=== PATIENT | female | born 1950 | race Caucasian/White ===

== ENCOUNTER → 2021-11-19 11:57 | Outpatient (CLI) | payer MEDICARE, SELFPAY ==
[2021-11-19 19:19] LABS: Add Manual Diff / Slide Review NO; Basophils Absolute Auto 0 /uL (0-100); Basophils Percent Auto 0.7 % (0-2); Eosinophils Absolute Auto 200 /uL (0-450); Eosinophils Percent Auto 3.2 % (2-4); Hematocrit 42.1 % (36-46); Hemoglobin 14.3 g/dL (12.0-16.0); Lymphocytes Absolute Auto 1500 /uL (1100-4500); Lymphocytes Percent Auto 29.5 % (25-40); Mean Corpuscular Hemoglobin 32.6 PG (26-34); Mean Corpuscular Volume 96.1 fL (80-100); Monocytes Absolute Auto 400 /uL (0-900); Monocytes Percent Auto 7.9 % (3-14); Neutrophils Absolute Auto 2900 /uL (1500-7000); Neutrophils Percent Auto 58.7 % (50-75); Platelet Count 241 X10^3/uL (150-400); Red Blood Cell Count 4.38 X10^6/uL (4.0-5.2); Red Cell Distribution Width 13.1 % (11.6-14.8)
[2021-11-19 19:24] LABS: Alanine Aminotransferase 11 IU/L (<35); Albumin 4.5 g/dL (3.5-5.0); Albumin Globulin Ratio 1.7 (1.0-2.8); Alkaline Phosphatase 67 U/L (38-126); Aspartate Aminotransferase 24 IU/L (14-36); BUN Creatinine Ratio 21.3 (6-22); Blood Urea Nitrogen 13 mg/dL (7-17); Calcium 9.7 mg/dL (8.4-10.2); Carbon Dioxide 30 mmol/L (22-32); Chloride 105 mmol/L (98-107); Cholesterol 275 mg/dL (140-199); Estimated Glomerular Filt Rate > 60.0 mL/min (>60); Globulin 2.6 g/dL (1.7-4.1); Glucose 100 mg/dL (80-110); HDL Cholesterol 106 mg/dL (40-60); HEMOLYSIS < 15 (0-50); LDL Cholesterol Calculated 146 mg/dL (<100); Sodium 139 mmol/L (137-145); Total Protein 7.1 g/dL (6.3-8.2); Triglycerides 116 mg/dL (35-150)
[2021-11-19 19:30] LABS: Hemoglobin A1C% w Est Avg Glu 5.2 % (4.0-6.0)
[2021-11-19 19:43] LABS: Vitamin D 25 Hydroxy (D3) 31.8 ng/mL (30.0-100.0)
[2021-11-19 19:57] LABS: TSH w/ Reflex to FT4 2.49 uIU/mL (0.47-4.68)
[2021-11-19 20:16] LABS: Vitamin B12 208 pg/mL (239-931)
== END ==
PROVIDERS: PCP Physician Assistant; Referring Provider Physician Assistant; Visit Provider Physician Assistant
DX: R20.0 Anesthesia of skin (principal); Z13.220 Encounter for screening for lipoid disorders; F41.9 Anxiety disorder, unspecified; G47.30 Sleep apnea, unspecified; R07.9 Chest pain, unspecified; K58.9 Irritable bowel syndrome, unspecified; Z87.19 Personal history of other diseases of the digestive system; Z85.828 Personal history of other malignant neoplasm of skin; L98.9 Disorder of the skin and subcutaneous tissue, unspecified; F32.A Depression, unspecified
CPT/HCPCS: 80053; 80061; 82306; 82607; 83036; 84443; 85025

== ENCOUNTER → 2022-01-01 13:06 | Outpatient (CLI) | payer MEDICARE, SELFPAY ==
[2022-01-01 19:27] LABS: Cholesterol 245 mg/dL (140-199); HDL Cholesterol 80 mg/dL (40-60); LDL Cholesterol Calculated 148 mg/dL (<100); Triglycerides 84 mg/dL (35-150)
== END ==
PROVIDERS: PCP Physician Assistant; Visit Provider Physician Assistant
DX: E78.5 Hyperlipidemia, unspecified (principal); Z98.82 Breast implant status
CPT/HCPCS: 80061

== ENCOUNTER → 2022-01-13 08:15 | Outpatient (CLI) | payer MEDICARE, SELFPAY ==
[2022-01-13 19:33] LABS: COVID19 - ORCAS (NP or Nasal) Negative (Negative)
== END ==
PROVIDERS: PCP Physician Assistant; Visit Provider Physician Assistant
DX: Z01.812 Encounter for preprocedural laboratory examination (principal); Z20.822 Contact with and (suspected) exposure to COVID-19
CPT/HCPCS: C9803; U0003

== ENCOUNTER → 2022-11-13 12:17 | Outpatient (CLI) | payer MEDICARE, SELFPAY | PROVIDERS: PCP Physician Assistant; Referring Provider Physician Assistant; Visit Provider Physician Assistant | DX: M81.0 Age-related osteoporosis without current pathological fracture (principal); Z13.820 Encounter for screening for osteoporosis; Z78.0 Asymptomatic menopausal state; Z87.311 Personal history of (healed) other pathological fracture | CPT/HCPCS: 77080 ==

== ENCOUNTER → 2022-11-17 10:46 | Outpatient (CLI) | payer MEDICARE, SELFPAY ==
[2022-11-17 20:23] LABS: Add Manual Diff / Slide Review NO; Basophils Absolute Auto 100 /uL (0-100); Eosinophils Absolute Auto 200 /uL (0-450); Eosinophils Percent Auto 4.3 % (2-4); Hemoglobin 13.5 g/dL (12.0-16.0); Lymphocytes Absolute Auto 2000 /uL (1100-4500); Lymphocytes Percent Auto 36.2 % (25-40); Mean Corpuscular HGB Conc 33.7 % (30-36); Mean Corpuscular Hemoglobin 31.9 PG (26-34); Mean Corpuscular Volume 94.7 fL (80-100); Monocytes Absolute Auto 500 /uL (0-900); Monocytes Percent Auto 9.4 % (3-14); Neutrophils Absolute Auto 2700 /uL (1500-7000); Neutrophils Percent Auto 49.1 % (50-75); Platelet Count 214 X10^3/uL (150-400); Red Blood Cell Count 4.22 X10^6/uL (4.0-5.2); White Blood Cell Count 5.5 X10^3/uL (4.5-11.0)
[2022-11-17 20:33] LABS: Alanine Aminotransferase 19 IU/L (<35); Albumin 3.9 g/dL (3.5-5.0); Albumin Globulin Ratio 1.3 (1.0-2.8); Alkaline Phosphatase 104 U/L (38-126); Aspartate Aminotransferase 24 IU/L (14-36); BUN Creatinine Ratio 28.8 (6-22); Blood Urea Nitrogen 17 mg/dL (7-17); Carbon Dioxide 28 mmol/L (22-32); Chloride 104 mmol/L (98-107); Cholesterol 244 mg/dL (140-199); Estimated Glomerular Filt Rate > 60 mL/min (>60); Glucose 98 mg/dL (80-110); HDL Cholesterol 62 mg/dL (40-60); HEMOLYSIS < 15 (0-50); LDL Cholesterol Calculated 166 mg/dL (<100); Potassium 4.2 mmol/L (3.4-5.1); Sodium 141 mmol/L (137-145); Total Protein 6.9 g/dL (6.3-8.2); Triglycerides 78 mg/dL (35-150)
[2022-11-17 21:01] LABS: TSH w/ Reflex to FT4 1.61 uIU/mL (0.47-4.68)
== END ==
PROVIDERS: PCP Physician Assistant; Visit Provider Physician Assistant
DX: R00.0 Tachycardia, unspecified (principal); R52 Pain, unspecified
CPT/HCPCS: 80053; 80061; 84443; 85025

== ENCOUNTER → 2022-12-14 10:49 | Outpatient (CLI) | payer MEDICARE, SELFPAY ==
[2022-12-14 12:33] LABS: Influenza A - CEPHEID Flu A NEGATIVE (NEGATIVE); Influenza B - CEPHEID Flu B NEGATIVE (NEGATIVE); Respiratory Syncytial Virus Negative (Negative)
[2022-12-14 13:06] LABS: COVID-19 CEPHEID 4-PLEX PCR Negative (Negative)
== END ==
PROVIDERS: PCP Physician Assistant; Visit Provider Nurse Practitioner Family
DX: J02.9 Acute pharyngitis, unspecified (principal); R53.83 Other fatigue
CPT/HCPCS: 0241U; 87070

== ENCOUNTER 2022-12-14 11:14 | Emergency (ER) | payer MEDICARE, SELFPAY ==
[2022-12-14 11:22] VITALS: BP 184/78; PULSE 80; RESP 14; TEMP 37; O2SAT 100; BMI 22.1
--- NOTE | 2022-12-14 12:18 | DI.RAD.S_ITS ---
PROCEDURE: XR CHEST 1V INDICATIONS: chest pain TECHNIQUE: One view of the chest was acquired. COMPARISON: [facility] ([facility]), CR, XR CHEST 2V, 10/24/2022, 15:20. FINDINGS: Surgical changes and devices: Mammoplasty implants are incidentally noted. Lungs and pleura: On this semiupright portable chest examination, no large pneumothorax or large pleural effusions are seen. No focal infiltrates are seen. Mediastinum: Mediastinal contours appear normal. Heart size is normal. Atherosclerotic calcification of the aortic arch is noted. Bones and chest wall: No suspicious bony lesions. Age-appropriate bony degenerative changes are seen. Overlying soft tissues appear unremarkable. IMPRESSION: Portable chest study within normal limits for age. Postoperative and degenerative changes are seen. Dictated by: Miguel Angel Dorantes M.D. on 12/14/2022 at 11:39 Approved by: Miguel Angel Dorantes M.D. on 12/14/2022 at 11:40
[2022-12-14 12:49] LABS: Add Manual Diff / Slide Review NO; Basophils Absolute Auto 0 /uL (0-100); Basophils Percent Auto 0.7 % (0-2); Eosinophils Absolute Auto 100 /uL (0-450); Eosinophils Percent Auto 2.4 % (2-4); Hematocrit 41.2 % (36-46); Hemoglobin 13.8 g/dL (12.0-16.0); Lymphocytes Absolute Auto 1500 /uL (1100-4500); Lymphocytes Percent Auto 29.5 % (25-40); Mean Corpuscular HGB Conc 33.5 % (30-36); Mean Corpuscular Hemoglobin 31.9 PG (26-34); Mean Corpuscular Volume 95.4 fL (80-100); Monocytes Absolute Auto 600 /uL (0-900); Neutrophils Absolute Auto 2900 /uL (1500-7000); Neutrophils Percent Auto 56.4 % (50-75); Platelet Count 231 X10^3/uL (150-400); Red Blood Cell Count 4.32 X10^6/uL (4.0-5.2); Red Cell Distribution Width 13.7 % (11.6-14.8); White Blood Cell Count 5.1 X10^3/uL (4.5-11.0)
[2022-12-14 13:03] LABS: Alanine Aminotransferase 21 IU/L (<35); Albumin 4.2 g/dL (3.5-5.0); Albumin Globulin Ratio 1.4 (1.0-2.8); Alkaline Phosphatase 111 U/L (38-126); Aspartate Aminotransferase 26 IU/L (14-36); BUN Creatinine Ratio 32.7 (6-22); Bilirubin Total 0.8 mg/dL (0.2-1.3); Blood Urea Nitrogen 16 mg/dL (7-17); Calcium 9.2 mg/dL (8.4-10.2); Carbon Dioxide 29 mmol/L (22-32); Chloride 106 mmol/L (98-107); Creatine Kinase 45 U/L (30-135); Estimated Glomerular Filt Rate > 60 mL/min (>60); Glucose 102 mg/dL (80-110); HEMOLYSIS < 15 (0-50); Lipase 93 U/L (23-300); Magnesium 1.9 mg/dL (1.6-2.3); Potassium 3.9 mmol/L (3.4-5.1); Sodium 141 mmol/L (137-145); Total Protein 7.2 g/dL (6.3-8.2)
[2022-12-14 13:07] LABS: PTT Partial Thromboplastin Tim 30 SECONDS (26-36)
[2022-12-14 13:14] LABS: Troponin I < 0.012 ng/mL (0.01-0.034)
[2022-12-14 13:21] VITALS: BP 183/84; PULSE 80; O2SAT 100
[2022-12-14 13:30] VITALS: PULSE 72; O2SAT 99
[2022-12-14 14:00] VITALS: PULSE 79; RESP 22; O2SAT 98
[2022-12-14 14:30] VITALS: PULSE 78; RESP 19; O2SAT 99
--- NOTE | 2022-12-14 14:44 | ED_ITS ---
HPI - URI/Sore Throat General Chief Complaint: Upper Respiratory Symptoms Stated Complaint: pain in lt shldr into neck, fluid accum, sore thro Time Seen by Provider: 12/14/22 11:31 Source: patient Mode of arrival: Ambulatory History of Present Illness HPI Narrative: Patient 72-year-old female with history of depression anxiety ongoing left shoulder bursitis presents today with some left-sided fluid in neck. She has had chronic ongoing left shoulder pain or couple of months' worth worse with movement. This morning woke up with pain across her shoulder blades in the back and possibly like throat pain. No chest pain no shortness of breath. She was seen at the walk-in clinic and instructed to come here for further evaluation. She had a negative viral panel. She is not had any fever chills cough. She is no abdominal pain nausea or vomiting. No numbness tingling or weakness. She denies any hoarseness in her voice she is able to swallow no stridor is appreciated. Related Data Home Medications Medication Instructions Recorded Confirmed clonazepam 1 mg tablet 1 mg PO DAILY 11/19/21 10/24/22 trazodone 150 mg tablet 150 mg PO DAILY 11/19/21 10/24/22 triamcinolone acetonide 0.147 1 spray topical DAILY 11/19/21 10/24/22 mg/gram topical aerosol Previous Rx's Medication Instructions Recorded acyclovir 400 mg tablet 400 mg PO DAILY #90 tabs 11/21/21 duloxetine 60 mg capsule,delayed 60 mg PO BID #180 caps 11/21/21 release nitroglycerin 0.4 mg sublingual 0.4 mg sublingual Q5-15M PRN chest 11/21/21 tablet pain #30 tabs triamcinolone acetonide 0.1 % 1 applic topical BID #30 grams 11/21/21 topical ointment dicyclomine 20 mg tablet 20 mg PO QID PRN abdominal pain 02/07/22 #60 tabs metoprolol succinate 50 mg 50 mg PO DAILY #90 tabs 08/04/22 tablet,extended release 24 hr Allergies Allergy/AdvReac Type Severity Reaction Status Date / Time latex Allergy Intermediate Rash Verified 12/14/22 11:27 Penicillins Allergy Intermediate Vomiting Verified 12/14/22 11:27 Review of Systems Review of Systems ROS Unobtainable: All systems reviewed & are unremarkable except as noted in HPI and below Patient History Medical History Benign familial tremor Chicken pox (~1957) COVID-19 (~2019) Fractures Hearing loss Hemorrhoid Kidney stone Measles (~1953) Neck pain (~2020) Painful menstrual periods Plantar warts Restless leg syndrome Shoulder pain Vertigo Vision disorder Surgical History Anesthesia History of breast surgery (~1993) History of knee replacement (~2016) History of lithotripsy (~2020) Family History Mother Cancer Sister Mental health problem Sister Cancer Social History marital status: household members: spouse lives independently: No housing: house pets and animals: Yes Smoking Status: Never smoker well-balanced diet: daily or most days Type(s) of exercise: none Smoking Status: Never smoker alcohol intake frequency: other Substance Use Type: does not use Exam Initial Vital Signs Initial Vital Signs: Vital Signs Temperature 98.6 F 12/14/22 11:22 Pulse Rate 80 12/14/22 11:22 Respiratory Rate 14 12/14/22 11:22 Blood Pressure 184/78 H 12/14/22 11:22 Pulse Oximetry 100 12/14/22 11:22 Oxygen Delivery Method 12/14/22 11:22 GENERAL: Well-appearing, well-nourished and in no acute distress. HEENT: Head atraumatic,EOMI, pupils reactive, face symmetric, moist mucous m embranes NECK: Possibly some supraclavicular fluid but no fluctuation no erythema no cervical lymphadenopathy no trachea deviation managing own secretions CARDIOVASCULAR: Regular rate and rhythm without murmurs, rubs or gallops. RESPIRATORY: Breath sounds equal bilaterally, no wheezes rales or rhonchi. ABDOMEN: Soft, nontender. Normoactive bowel sounds all 4 quadrants. No guarding or rebound. EXTREMITIES: Normal range of motion, no clubbing or edema. Neurovascularly intact NEUROLOGICAL: Alert and oriented x4. SKIN: Warm, dry, no laceration, no petechiae, no rashes or lesions. Scores HEART Score Heart Score history: Slightly Suspicious Heart Score EKG: Normal Heart Score Age: > or = 65 years old Heart Score risk factors: No known risk factors Heart Score troponin: < or = to normal limit Heart Score Total: 2 Course Orders Ordered: ED Orders 12/14/22 11:39 EKG-12 Lead Stat 12/14/22 12:18 XR chest 1V Stat 12/14/22 12:35 Complete Blood Count AUTO DIFF Stat Comprehensive Metabolic Panel Stat Lipase Stat Magnesium Stat Partial Thromboplastin Time Stat Prothrombin Time INR Stat Troponin & CK Cardiac Panel Stat Vital Signs Vital signs: Vital Signs - 8 hr 12/14/22 13:21 12/14/22 13:21 12/14/22 13:30 Pulse Rate 80 72 Respiratory Rate Blood Pressure 183/84 H Pulse Oximetry 100 99 12/14/22 14:00 12/14/22 14:30 Pulse Rate 79 78 Respiratory Rate 22 19 Blood Pressure Pulse Oximetry 98 99 MDM - URI/Sore Throat Lab Data 12/14/22 12:35 12/14/22 12:35 Labs: Lab Results 12/14/22 12/14/22 12/14/22 Range/Units 12:35 12:35 12:35 WBC 5.1 (4.5-11.0) X10^3/uL RBC 4.32 (4.0-5.2) X10^6/uL Hgb 13.8 (12.0-16.0) g/dL Hct 41.2 (36-46) % MCV 95.4 (80-100) fL MCH 31.9 (26-34) PG MCHC 33.5 (30-36) % RDW 13.7 (11.6-14.8) % Plt Count 231 (150-400) X10^3/uL Neut % (Auto) 56.4 (50-75) % Lymph % (Auto) 29.5 (25-40) % Spink % (Auto) 11.0 (3-14) % Eos % (Auto) 2.4 (2-4) % Baso % (Auto) 0.7 (0-2) % Neut # (Auto) 2900 (7571-0022) /uL Lymph # (Auto) 1500 (2506-1180) /uL Spink # (Auto) 600 (0-900) /uL Eos # (Auto) 100 (0-450) /uL Baso # (Auto) 0 (0-100) /uL PT 11.0 (10.1-12.7) SECONDS INR 1.0 (0.9-1.3) APTT 30 (26-36) SECONDS Sodium 141 (137-145) mmol/L Potassium 3.9 (3.4-5.1) mmol/L Chloride 106 (98-107) mmol/L Carbon Dioxide 29 (22-32) mmol/L BUN 16 (7-17) mg/dL Creatinine 0.49 L (0.52-1.04) mg/dL Estimated GFR > 60 (>60) mL/min BUN/Creatinine Ratio 32.7 H (6-22) Glucose 102 (80-110) mg/dL Calcium 9.2 (8.4-10.2) mg/dL Magnesium 1.9 (1.6-2.3) mg/dL Total Bilirubin 0.8 (0.2-1.3) mg/dL AST 26 (14-36) IU/L ALT 21 (<35) IU/L Alkaline Phosphatase 111 (38-126) U/L Total Creatine Kinase 45 (30-135) U/L CK-MB (CK-2) TNP CK-MB (CK-2) Rel Index TNP Troponin I < 0.012 (0.01-0.034) ng/mL Total Protein 7.2 (6.3-8.2) g/dL Albumin 4.2 (3.5-5.0) g/dL Globulin 3.0 (1.7-4.1) g/dL Albumin/Globulin Ratio 1.4 (1.0-2.8) Lipase 93 (23-300) U/L Imaging Data Chest x-ray: Radiologist's Impression: [address] [address] XRay Report Signed Patient: Irene Walls MR#: [id number] : 1950 Acct:[id number] Age/Sex: 72 / F Date of Service: 12/14/22 Loc: ED Accession Number: [id number] ?? Procedure: XR chest 1V Ordering Provider: Tiana Wallis D.O. PROCEDURE:? XR CHEST 1V ? INDICATIONS:? chest pain ? TECHNIQUE:? One view of the chest was acquired.? ? COMPARISON:? [facility] ([facility]), CR, XR CHEST 2V, 10/24/2022, 15:20. ? FINDINGS:? ? Surgical changes and devices:? Mammoplasty implants are incidentally noted.? ? Lungs and pleura:? On this semiupright portable chest examination, no large pneumothorax or large pleural effusions are seen.? No focal infiltrates are seen.? ? Mediastinum:? Mediastinal contours appear normal.? Heart size is normal.? Atherosclerotic calcification of the aortic arch is noted.? ? Bones and chest wall:? No suspicious bony lesions.? Age-appropriate bony degenerative changes are seen.? Overlying soft tissues appear unremarkable.? ? ? IMPRESSION:? Portable chest study within normal limits for age. ? Postoperative and degenerative changes are seen.? ? ? Dictated by: Miguel Angel Dorantes M.D. on 12/14/2022 at 11:39 ? ? ECG Data Interpretation: Sinus rhythm rate 77 CO interval 160 QRS [address] depression T-wave inversion or elevation MDM Narrative Medical decision making narrative: Patient without significant past medical history presenting today with concern for swelling in her neck. There is trace amount of fluid not causing any airway impingement or difficulty swallowing. I barely appreciate significant swelling or fluid. Blood work is overall reassuring without erythema electrolytes are within normal limits. With pain across shoulder blades cardiac was certainly considered. She is low risk with heart score of 3. Troponin is negative EKG does not show any changes. Patient can not stop talking about the fluid around her neck and wants to know what it is. At this time I do not see any need for any further imaging. I recommend that she follow-up with the doctors. There is no sign of infection. Patient left prior to her discharge instructions Discharge Plan Departure Patient Disposition: Home Clinical Impression: Atypical chest pain Activity Restrictions/Additional Instructions: *You have been diagnosed with atypical chest pain *What to do: At this time he may need further evaluation of swelling in her neck but not indicated today *Continue to take medications as directed *Follow up with your primary care provider in 2-3 days or call [phone] *Return to ER if you should have increasing pain swelling difficulty swallowing difficulty breathing hoarse voice or any new, worsening or concerning symptoms Prescriptions: No Action acyclovir 400 mg tablet 400 mg PO DAILY Qty: 90 1RF duloxetine 60 mg capsule,delayed release(DR/EC) 60 mg PO BID Qty: 180 1RF triamcinolone acetonide 0.1 % ointment 1 applic topical BID Qty: 30 1RF Rx Instructions: Apply to elbow twice daily, Do not use more than two weeks nitroglycerin 0.4 mg tablet, sublingual 0.4 mg sublingual Q5-15M PRN (Reason: chest pain) Qty: 30 1RF Rx Instructions: do not exceed 3 doses per episode dicyclomine 20 mg tablet 20 mg PO QID PRN (Reason: abdominal pain) Qty: 60 0RF metoprolol succinate 50 mg tablet extended release 24 hr 50 mg PO DAILY Qty: 90 1RF trazodone 150 mg tablet 150 mg PO DAILY clonazepam 1 mg tablet 1 mg PO DAILY triamcinolone acetonide 0.147 mg/gram aerosol 1 spray topical DAILY Referrals: Shelly Redmond PA-C [Primary Care Provider] - Stand Alone Forms: Patient Portal/API
== END 2022-12-14 14:45 | disposition home or self-care (01) ==
PROVIDERS: Emergency Provider Emergency Medicine; PCP Physician Assistant
DX: R07.89 Other chest pain (principal); R22.1 Localized swelling, mass and lump, neck; Z20.822 Contact with and (suspected) exposure to COVID-19; J02.9 Acute pharyngitis, unspecified; R53.83 Other fatigue
CPT/HCPCS: 0241U; 36415; 71045; 80053; 82550; 83690; 83735; 84484; 85025; 85610; 85730; 87070; 93005; 99283; 99284

== ENCOUNTER 2024-08-21 21:18 | Emergency (ER) | payer OTHER, SELFPAY ==
[2024-08-21 21:21] VITALS: BP 175/77; PULSE 78; RESP 16; TEMP 37.1; O2SAT 98; BMI 22.1
--- NOTE | 2024-08-21 21:30 | DI.RAD.S_ITS ---
PROCEDURE: XR CLAVICLE RT INDICATIONS: Fell on RIGHT shoulder and heard a crunch. TECHNIQUE: 2 views of the clavicle were acquired. COMPARISON: None. FINDINGS: Bones: Mildly displaced distal right clavicular fracture. Coracoclavicular and acromioclavicular intervals are maintained. Mild degenerative changes of the acromioclavicular joint. Soft tissues: No suspicious soft tissue calcifications. No apical pneumothorax. IMPRESSION: Mildly displaced distal right clavicular fracture. Acromioclavicular joint interval is maintained. Dictated by: Billy Mejia M.D. on 08/21/2024 at 22:31 Approved by: Billy Mejia M.D. on 08/21/2024 at 22:31
--- NOTE | 2024-08-21 21:30 | DI.RAD.S_ITS ---
PROCEDURE: XR SHOULDER RT MIN 2V INDICATIONS: Fell on RIGHT shoulder and heard a crunch. TECHNIQUE: 2 views of the shoulder were acquired. COMPARISON: [facility] ([facility]), CR, XR SHOULDER LT MIN 2V, 07/30/2023, 11:15. FINDINGS: Bones: Mildly displaced distal right clavicular fracture. Coracoclavicular and acromioclavicular intervals are maintained. Mild degenerative changes of the acromioclavicular joint. No suspicious bony lesions. Visualized ribs appear intact. Soft tissues: No suspicious soft tissue calcifications. IMPRESSION: Mildly displaced distal right clavicular fracture. Acromioclavicular joint space is maintained. Dictated by: Billy Mejia M.D. on 08/21/2024 at 22:32 Approved by: Billy Mejia M.D. on 08/21/2024 at 22:32
--- NOTE | 2024-08-21 21:37 | ED.UPPEXIN ---
HPI - Extremity Injury (Upper) General Chief Complaint: Extremity Injury, Upper Stated Complaint: right shoulder injury fell at home Time Seen by Provider: 08/21/24 21:36 Source: patient Mode of arrival: Ambulatory History of Present Illness HPI narrative: 73-year-old female right-handed, had ground level fall in her residence [facility] about 5:00 p.m. today, tripped on floor mat protection materials at construction area, fall sounds mechanical in nature, no antecedent chest pain or shortness of breath or weakness. She fell onto her right shoulder, complained of right shoulder pain, was seen by medics, placed in a shoulder splint, drove herself here on the [place] for further evaluation. No other injuries. Previous neck discomfort, right-sided trapezius area discomfort, possible muscle spasm. No weakness or numbness to face arm or leg. No loss of consciousness. No headache. No pain or complaints to midline upper lower neck, upper lower back, head scalp face. No pain or discomfort to the remainder of a right upper extremity, no discomfort to upper arm, elbow, forearm, wrist, hands, fingers. No complaints of pain to her left upper extremity, nor to either leg. She had history of remote pelvic fractures, able to bear weight, does not believe she has any new injury in these areas, feels steady on her gait. No abdominal complaints. No shortness of breath. X-ray right clavicle and right shoulder x-rays from triage. Both show distal right clavicle and fracture, no AC separation mentioned, shoulder intact otherwise. See radiology reports. Patient in right shoulder sling. Neurovascularly intact. No skin tenting at fracture site. Some muscle spasm noted ipsilateral right paracervical, superior trapezius, possibly also superior rhomboid musculature. Patient drove self. We will splint in night in a hotel then drive back to [facility]. Follow up with Orthopedic surgery, contact information given for local ortho on-call if she follows up here. She has [facility] providers as well, might follow up in the [facility]. Copies of x-ray reports provided. She took photos of the images at nursing station. Prescription for naproxen requested, sent to her pharmacy. Tramadol home pack. For muscle spasm Robaxin dose dispensed here to take when she is at the motel, prescription sent for further doses if needed. Follow up with Orthopedic surgery advised. Return precautions discussed Related Data Home Medications Medication Instructions Recorded Confirmed triamcinolone acetonide 0.147 1 spray topical DAILY 11/19/21 07/28/23 mg/gram topical aerosol Previous Rx's Medication Instructions Recorded nitroglycerin 0.4 mg sublingual 0.4 mg sublingual Q5-15M PRN chest 11/21/21 tablet pain #30 tabs triamcinolone acetonide 0.1 % 1 applic topical BID #30 grams 11/21/21 topical ointment duloxetine 60 mg capsule,delayed 60 mg PO BID #180 caps 07/24/23 release acyclovir 400 mg tablet 400 mg PO DAILY #90 tabs 07/28/23 clonazepam 1 mg tablet 1 mg PO DAILY #10 tabs 07/28/23 trazodone 150 mg tablet 150 mg PO DAILY #90 tabs 11/04/23 metoprolol succinate 50 mg 50 mg PO DAILY #90 tabs 03/15/24 tablet,extended release 24 hr methocarbamol 500 mg tablet 500 mg PO TID 7 days #21 tabs 08/21/24 naproxen sodium 550 mg tablet 550 mg PO Q12H PRN pain #20 tabs 08/21/24 tramadol 50 mg tablet 50 mg PO TID PRN pain #15 tabs 08/21/24 Allergies Allergy/AdvReac Type Severity Reaction Status Date / Time latex Allergy Intermediate Rash Verified 07/28/23 10:39 Penicillins Allergy Intermediate Vomiting Verified 07/28/23 10:39 Review of Systems Review of Systems Narrative: see HPI Patient History Medical History Benign familial tremor Chicken pox (~1957) COVID-19 (~2019) Fractures Hearing loss Hemorrhoid Kidney stone Measles (~1953) Neck pain (~2020) Painful menstrual periods Plantar warts Restless leg syndrome Shoulder pain Vertigo Vision disorder Surgical History Anesthesia History of breast surgery (~1993) History of knee replacement (~2016) History of lithotripsy (~2020) Family History Mother Cancer Sister Mental health problem Sister Cancer Social History marital status: household members: spouse lives independently: No housing: house pets and animals: Yes Smoking Status: Never smoker well-balanced diet: daily or most days Type(s) of exercise: none Smoking Status: Never smoker alcohol intake frequency: a few times a month Alcohol type: wine Substance Use Type: does not use Exam Narrative Exam Narrative: GENERAL: Well-developed patient, in mild distress. HEAD: Atraumatic. Normocephalic. EYES: Pupils equal round and reactive. Extraocular motions intact. No scleral icterus. No injection or drainage. ENT: Nose without bleeding, purulent drainage. Throat without erythema, tonsillar hypertrophy or exudate. Airway patent. NECK: Trachea midline. Non tender midline cervical spine. Mild tenderness right lateral posterior musculature neck. No skin bruising or swelling or abrasion or laceration changes. CARDIOVASCULAR: Regular rate and rhythm without murmurs, gallops, or rubs. RESPIRATORY: Clear to auscultation. Breath sounds equal bilaterally. No wheezes, rales, or rhonchi. GASTROINTESTINAL: Abdomen soft, non-tender, nondistended. EXTREMITIES: Tenderness to right AC joint without gross step-off, no crepitance, no tenderness along mid medial right clavicle. Some tenderness superior right trapezius with muscle spasm present, and also some along the right superior rhomboid. BACK: Nontender without deformity or crepitance. No flank tenderness. NEURO: AOx3. Motor functions grossly nonfocal SKIN: No rash or erythema of visible areas Initial Vital Signs Initial Vital Signs: Vital Signs Temperature 98.8 F 08/21/24 21:21 Pulse Rate 78 08/21/24 21:21 Respiratory Rate 16 08/21/24 21:21 Blood Pressure 175/77 H 08/21/24 21:21 Pulse Oximetry 98 08/21/24 21:21 Oxygen Delivery Method Room Air 08/21/24 21:21 Course Orders Ordered: ED Orders 08/21/24 21:30 XR clavicle RT Stat XR shoulder RT min 2V Stat Discontinued Medications Ketorolac Tromethamine (Ketorolac 30 Mg/Ml Vial) 30 mg IM NOW ONE Stop: 08/21/24 22:39 Last Admin: 08/21/24 22:45 Dose: 30 mg Documented By: JAZLYN Methocarbamol (Methocarbamol 500 Mg Tablet) 500 mg PO NOW ONE Stop: 08/21/24 23:27 Last Admin: 08/21/24 23:33 Dose: 500 mg Documented By: JAZLYN Naproxen (Naproxen 250 Mg Tablet) 500 mg PO NOW ONE Stop: 08/21/24 23:27 Last Admin: 08/21/24 23:34 Dose: 500 mg Documented By: JAZLYN Tramadol HCl (Tramadol 50 Mg Prepack) 1 bottle MISC DIRECTED ONE Stop: 08/21/24 23:27 Last Admin: 08/21/24 23:33 Dose: 1 bottle Documented By: JAZLYN Vital Signs Vital signs: Vital Signs - 8 hr 08/21/24 21:21 08/21/24 23:43 Temperature 98.8 F Pulse Rate 78 68 Respiratory Rate 16 16 Blood Pressure 175/77 H 136/72 Pulse Oximetry 98 97 Oxygen Delivery Method Room Air Room Air Discharge Plan Departure Patient Disposition: Home Clinical Impression: Fall from ground level, Fracture of clavicle, Acromioclavicular joint injury, Cervical paraspinal muscle spasm, Trapezius muscle spasm Activity Restrictions/Additional Instructions: Ground level fall this afternoon at home [place] mechanical in nature, tripping on construction material on the floor. Landing right shoulder and door frame, EMS evaluation sling placement, drove self for further evaluation on [place] to emergency department. Some neck discomfort but not midline, tenderness to paraspinal musculature lateral, also along superior aspect of right trapezius muscle, likely associated muscle spasm. No CT imaging of the cervical spine indicated at this time. X-rays of the right shoulder and clavicle showed a distal fracture of the right clavicle. Clinically there is also some tenderness at the AC joint, this could likely also be injured but was not obviously displaced by radiograph. Shoulder sling placed. Prescription given for pain medication, muscle relaxant, anti-inflammatory medications. Orthopedic surgery follow up information provided if you would like to see Dr. Jarrett, or with Orthopedic surgery in your home [place] area. Consider recheck next 2-3 days with your regular provider, to coordinate further orthopedic follow up, and physical therapy as needed. Return earlier to this/nearest emergency department for any change worsening symptoms or any concerns prior Prescriptions: New naproxen sodium 550 mg tablet 550 mg PO Q12H PRN (Reason: pain) Qty: 20 0RF methocarbamol 500 mg tablet 500 mg PO TID 7 Days Qty: 21 0RF tramadol 50 mg tablet 50 mg PO TID PRN (Reason: pain) Qty: 15 0RF No Action triamcinolone acetonide 0.1 % ointment 1 applic topical BID Qty: 30 1RF Rx Instructions: Apply to elbow twice daily, Do not use more than two weeks nitroglycerin 0.4 mg tablet, sublingual 0.4 mg sublingual Q5-15M PRN (Reason: chest pain) Qty: 30 1RF Rx Instructions: do not exceed 3 doses per episode duloxetine 60 mg capsule,delayed release(DR/EC) 60 mg PO BID Qty: 180 1RF trazodone 150 mg tablet 150 mg PO DAILY Qty: 90 4RF metoprolol succinate 50 mg tablet extended release 24 hr 50 mg PO DAILY Qty: 90 0RF triamcinolone acetonide 0.147 mg/gram aerosol 1 spray topical DAILY acyclovir 400 mg tablet 400 mg PO DAILY Qty: 90 4RF clonazepam 1 mg tablet 1 mg PO DAILY Qty: 10 0RF Referrals: Mary Yeung PA-C [Primary Care Provider] - Toni Jarrett MD [Physician] - Stand Alone Forms: Patient Portal/API
[2024-08-21] MEDS: KETOROLAC 30 MG/ML VIAL IM (22:45)
[2024-08-21] MEDS: methocarbamoL 500 MG TABLET PO (23:33)
[2024-08-21] MEDS: TRAMADOL 50 MG PREPACK 1 BOTTLE MISC (23:33)
[2024-08-21] MEDS: NAPROXEN 250 MG TABLET 500 MG PO (23:34)
[2024-08-21 23:43] VITALS: BP 136/72; PULSE 68; RESP 16; O2SAT 97
== END 2024-08-21 23:43 | disposition home or self-care (01) ==
PROVIDERS: Emergency Provider Emergency Medicine; PCP Physician Assistant
DX: S42.031A Displaced fracture of lateral end of right clavicle, initial encounter for closed fracture (principal); M62.838 Other muscle spasm; W01.0XXA Fall on same level from slipping, tripping and stumbling without subsequent striking against object, initial encounter
CPT/HCPCS: 73000; 73030; 96372; 99283; J1885